=== PATIENT | female | born 1955 | race Caucasian/White ===

== ENCOUNTER → 2020-06-09 09:55 | Outpatient (CLI) | payer MEDICARE, SELFPAY ==
--- NOTE | ~2020-06-09 | MR_ITS ---
EXAMINATION: MR lumbar spine wo [facility] EXAM DATE: 06/09/2020 10:38 INDICATION: Spondylosis, lumbar region spondylosis . TECHNIQUE: Multi-sequential, multiplanar MR images of the lumbar spine were obtained without contrast . Sagittal T1, T2, T2 fat saturation images. Axial T2 weighted images. There is no prior study for comparison. FINDINGS: There are some degenerative endplate signal changes L4-5 and L5-S1, with moderate to severe loss of the disc heights from L3 through S1, moderate at L1-2. There are no suspicious focal verteb ral signal abnormalities identified. Mild chronic loss of the L4 and L5 vertebral body heights. The c onus medullaris terminates at the L2 level and has normal signal intensity and morphology. Level by level evaluation: T12-L1: Disc does not extend beyond the endplate margin. Facet arthropathy: Mild. Neural foraminal stenosis: No stenosis. Central canal stenosis: No stenosis. L1-L2: There is a mild diffuse disc bulge, superimposed left central small to moderate-sized protrusi on. Facet arthropathy: Mild to moderate. Neural foraminal stenosis: Moderate left, mild to moderate right. Central canal stenosis: Mild to moderate. L2-L3: There is a mild diffuse disc bulge. Facet arthropathy: Mild to moderate . Ligamentum flavum enlargement. Neural foraminal stenosis: Moderate left, mild right. Central canal stenosis: Mild. L3-L4: There is a moderate diffuse disc bulge, superimposed moderate-sized left central extrusion int o the lateral recess. Facet arthropathy: Severe right, moderate left. Ligamentum flavum enlargement. Neural foraminal stenosis: Severe left, moderate to severe right. Central canal stenosis: Moderate. L4-L5: There is a moderate diffuse disc bulge. Facet arthropathy: Severe right, moderate left. Ligamentum flavum enlargement. Neural foraminal stenosis: Moderate to severe right, mild to moderate left. Central canal stenosis: Moderate. L5-S1: There is a mild to moderate diffuse disc bulge. Facet arthropathy: Severe. Neural foraminal stenosis: Moderate to severe right, moderate left. Central canal stenosis: Mild to moderate. IMPRESSION: 1. L3-4 left central extrusion into the neural foramina causing severe left neural foraminal stenosi s. 2. Advanced lumbar spondylosis as detailed above. Reviewed, dictated and finalized at location B. [employer] IMPRESSION: 1. L3-4 left central extrusion into the neural foramina causing severe left ne ural foraminal stenosis. 2. Advanced lumbar spondylosis as detailed above.
== END ==
PROVIDERS: PCP Physician Assistant; Visit Provider Physician Assistant
DX: M47.896 Other spondylosis, lumbar region (principal); M51.26 Other intervertebral disc displacement, lumbar region
CPT/HCPCS: 72148

== ENCOUNTER 2020-12-16 13:14 | Outpatient (CLI) | payer MEDICARE, SELFPAY ==
--- NOTE | ~2020-12-16 | US_ITS ---
EXAMINATION: US venous doppler LE RT DATE: 12/16/2020 13:50 INDICATION: Right lower limb pain TECHNIQUE: Qureshi scale images without and with compression and Doppler images of the right lower extre mity veins were obtained. COMPARISON: None FINDINGS: The right common femoral vein, profunda femoral vein, femoral vein, popliteal vein, peronea l trunk, posterior tibial veins, and greater saphenous vein are patent. IMPRESSION: 1. Patent right lower extremity veins. No evidence of deep venous thrombosis. Reviewed, dictated and finalized at location B.
== END 2020-12-16 13:15 | disposition home or self-care (01) ==
LOC: ANHIMG 13:20
PROVIDERS: PCP Physician Assistant; Visit Provider Physician Assistant
DX: M79.661 Pain in right lower leg (principal)
CPT/HCPCS: 93971